=== PATIENT | male | born 1955 | race Hispanic/Latino ===

== ENCOUNTER 2020-08-02 10:19 | Outpatient (CLI) | payer MEDICARE, MEDICAID | END 2020-08-02 10:20 | disposition home or self-care (01) | LOC: CSHMRI 10:19 | PROVIDERS: ATTEND Physician Assistant Medical | DX: K74.60 Unspecified cirrhosis of liver (principal); N28.1 Cyst of kidney, acquired; K80.20 Calculus of gallbladder without cholecystitis without obstruction | CPT/HCPCS: 74183 ==